=== PATIENT | male | born 1975 | race Caucasian/White ===

== ENCOUNTER 2016-12-15 14:08 | Emergency (ER) | payer OTHER ==
[2016-12-15 14:16] VITALS: RESP 18
--- NOTE | 2016-12-15 14:57 | EDPHY ---
H & P Stated Complaint: blood in stool/abd discomfort/nausea/bloating - Personal History Current Tetanus/Diphtheria Vaccine: No - Medical/Surgical History Hx Asthma: No Hx Chronic Respiratory Disease: No Hx Diabetes: No Hx Cardiac Disease: No Hx Renal Disease: No Hx Cirrhosis: No Hx Alcoholism: No Hx HIV/AIDS: No Hx Splenectomy or Spleen Trauma: No Other PMH: seizure disorder - Social History Smoking Status: Never smoked Time Seen by Provider: 12/15/16 14:39 HPI/ROS: CHIEF COMPLAINT: Bloody appearing stool HISTORY OF PRESENT ILLNESS: 41-year-old male with no anticoagulant use history , history of seizure disorder, complaining of constipation, was bearing down hard this morning and noticed bloody appearance to his stool. On the next bowel movement this had resolved however on the subsequent 3rd bowel movement he noticed continued bloody appearance with some pain on defecation. No abdominal pain. No nausea or vomiting. No dizziness. No syncope. No near syncope. No chest pain. No rectal foreign body insertion. No chronic NSAID use PRIMARY CARE PROVIDER:Dr. Walter Estrada REVIEW OF SYSTEMS: A ten point review of systems was performed and is negative with the exception of the items mentioned in the HPI PAST MEDICAL & SURGICAL HISTORY: Seizure disorder SOCIAL HISTORY: PHYSICAL EXAM (Prior to examination, patient consented to physical exam, hands were washed and my usual and customary physical exam procedures followed) 1) GENERAL: Well-developed, well-nourished, alert and oriented. Appears to be in no acute distress. 2) HEAD: Normocephalic, atraumatic 3) HEENT: Pupils equal, round, reactive to light bilaterally. Sclera anicteric. 4) NECK: Full range of motion, no meningeal signs. 5) LUNGS: Clear auscultation bilaterally, no wheezes, no rhonchi, no retractions. 6) HEART: Regular rate and rhythm, no murmur, no heave, no gallop. 7) ABDOMEN: No guarding, no rebound, no focal tenderness, negative McBurney's, negative Kapadia's, negative Rovsing's, negative peritoneal sign, I am unable to elicit any abdominal pain 8) MUSCULOSKELETAL: Moving all extremities, no focal areas of tenderness, no obvious trauma. No peripheral edema or discoloration. 9) BACK: no visual or palpable abnormality. 10) SKIN: No rash, no petechiae. 11) rectal (with nurse Bradford Macedo at bedside): Normal rectal tone, reddish-brown stool on glove, nonmelenic appearing DIFFERENTIAL DIAGNOSIS: in no particular order including but not limited to factitious hematochezia, hemorrhoid, GI bleed (Pawan,Zay Ritika) Constitutional: Initial Vital Signs Temperature (C) 36.7 C 12/15/16 14:12 Heart Rate 84 12/15/16 14:12 Respiratory Rate 18 12/15/16 14:12 Blood Pressure 139/94 H 12/15/16 14:12 O2 Sat (%) 96 12/15/16 14:12 O2 Delivery Mode Room Air Allergies/Adverse Reactions: Sulfa (Sulfonamide Antibiotics) Allergy (Intermediate, Verified 12/15/16 14:10) Rash HAYFEVER Allergy (Uncoded 06/01/11 11:00) Other-Enter Comments Home Medications: Medication Instructions Recorded Amlodipine Besylate 12/15/16 Ativan 12/15/16 Keppra 12/15/16 Lisinopril 12/15/16 Onfi 12/15/16 Trileptal 12/15/16 Vinpat 12/15/16 Medical Decision Making Other Provider: PHYSICIAN DOCUMENTATION: The patient was evaluated and managed by the Physician Surfboard Maker and myself. I have reviewed the chart and agree with the findings and plan of care as documented. In addition, I examined the patient myself at multiple times. History confirmed as some red stool after constipation. Some abdominal discomfort but no real pain. History of seizure disorder. Currently on a low- salt diet for his hypertension. Physical findings as follows: Alert, normally conversant, not confused. No abdominal tenderness to palpation. His rectal bleeding sounds more likely to be due to hemorrhoid or anal fissure. However his sodium is trending down is 127 today. I tried to call his primary care practice but his physician Walter Estrada is out of town. I tried to get the pupil personnel services director physician to call back but they did not, and at 5:05 p.m. we called again but only got the answering service. Because I am really unable at this time to arrange prompt follow-up I consulted the hospitalist who saw the patient in ED for advice regarding disposition and treatment. Discussed with Dr. Barkley who will consult; [id number]. He assumed care, recommended discharge patient who is agreeable. Discussed with Dr. Smith for Natalie, who called back at 1809 will ensure recheck 1-2 days, outpatient GI or scope, discussed sodium. I am the secondary supervising physician. (Sage Doty) - Data Points Laboratory Results: Laboratory Results 12/15/16 15:24 12/15/16 15:24 Medications Given: Discontinued Medications Sodium Chloride (Ns) 1,000 mls @ 0 mls/hr IV ONCE ONE PRN Reason: Wide Open Stop: 12/15/16 17:00 Last Admin: 12/15/16 17:08 Dose: 1,000 mls Departure - Departure Disposition: Home, Routine, Self-Care Clinical Impression: Constipation, Hyponatremia Condition: Good Instructions: Constipation (ED), High Fiber Diet (ED) Additional Instructions: Return to the emergency department if you develop dizziness, feeling they you will pass out, abdominal pain or any other symptoms that concern you. Diet intake changes as discussed with Dr. Barkley. Referrals: Walter Estrada MD [Primary Care Provider] - 1-2 days without fail (Please call Dr. Rojo office tomorrow to get a repeat sodium blood test done in the next 48 hours.) Morgan Yang MD [place] [place] - 5-7 days, call for appt. ( Outpatient gastroenterology referral as discussed with you by Dr. Barkley)
[2016-12-15 15:34] LABS: % IMMATURE GRANULYOCYTES 0.6 % (0.0-1.1); ABSOLUTE IMMATURE GRANULOCYTES 0.07 10^3/uL (0.00-0.10); ADD DIFF? NO; ADD MORPH? NO; ADD SCAN? NO; ATYPICAL LYMPHOCYTE FLAG 0 (0-99); FRAGMENT RBC FLAG 0 (0-99); HEMATOCRIT 39.6 % (40.0-51.0); HEMOGLOBIN 14.6 g/dL (13.7-17.5); LEFT SHIFT FLG 10 (0-99); LIPEMIA HEMOLYSIS FLAG 90 (0-99); MEAN CELL HEMOGLOBIN 31.5 pg (27.9-34.1); MEAN CELL HEMOGLOBIN CONCENTR. 36.9 g/dL (32.4-36.7); MEAN CELL VOLUME 85.5 fL (81.5-99.8); MEAN PLATELET VOLUME 8.4 fL (8.7-11.7); PLATELET CLUMPS FLAG 10 (0-99); PLATELET COUNT 279 10^3/uL (150-400); RED BLOOD CELL COUNT 4.63 10^6/uL (4.40-6.38); RED CELL DISTRIBUTION WIDTH 11.4 % (11.5-15.2)
[2016-12-15 16:04] LABS: ALBUMIN 5.1 g/dL (3.5-5.0); ALKALINE PHOSPHATASE 100 IU/L (38-126); ANION GAP 12 mEq/L (8-16); ASPARTATE AMINOTRANSFERASE 30 IU/L (17-59); BILIRUBIN,TOTAL 0.7 mg/dL (0.1-1.4); BILIRUBIN-UNCONJUGATED 0.3 mg/dL (0.0-1.1); CALCIUM 9.3 mg/dL (8.5-10.4); CARBON DIOXIDE 24 mEq/l (22-31); CHLORIDE 91 mEq/L (97-110); CREATININE 0.8 mg/dL (0.7-1.3); GLOMERULAR FILTRATION RATE > 60; GLUCOSE 89 mg/dL (70-100); POTASSIUM 4.4 mEq/L (3.5-5.2); SODIUM 127 mEq/L (134-144); TOTAL PROTEIN 7.8 g/dL (6.3-8.2)
[2016-12-15 16:05] LABS: ALANINE AMINOTRANSFERASE 57 IU/L (21-72); BILIRUBIN-CONJUGATED 0.4 mg/dL (0.0-0.5)
[2016-12-15] MEDS ORDERED: NS 1,000 ML IV ONE (16:59)
--- NOTE | 2016-12-15 18:20 | GCON ---
[f rep st] CONSULTATION HOSPITALIST CONSULTATION REFERRING PHYSICIAN: Sage Doty MD REASON FOR CONSULTATION: Hyponatremia and consideration for hospitalization. 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 The patient states he has been having proble ms with constipation. Dr. Doty thought the bloody stools were most likely the result of a fissure. Incidentally, the patient was found to be hyponatremic with a serum sodium of 127. I reviewed his m edical records and it appears in 2012 and 2016 his sodium was 132 and 133. The patient endorses dri nking upwards of 3-4 L of water per day to avoid kidney stones. He is also on a low-salt diet in an attempt to control his blood pressure. PAST MEDICAL HISTORY: 1. Astrocytoma, status post resection with resulting seizure disorder. 2. Kidney stones. 3. Hypertension. PAST SURGICAL HISTORY: 1. Vagus nerve stimulator for seizure disorder. 2. Ureteroscopy and stone removal. 3. Craniotomy. MEDICATIONS: Reviewed. Refer to [employer] for details. ALLERGIES: Sulfa antibiotics. SOCIAL HISTORY: He denies any alcohol, tobacco, or illicit drug use. FAMILY HISTORY: Reviewed and noncontributory. REVIEW OF SYSTEMS: Comprehensive 10-point review of systems was done and is negative except for as mentioned in the HPI. PHYSICAL EXAM: VITAL SIGNS: Blood pressure 139/94, pulse of 84, respiratory rate 18, O2 sat 96% on room air, temperature afebrile. GENERAL: No acute distress. HEENT: Head: Normocephalic, atraum atic. Eyes: PERRLA. Sclerae anicteric. Mouth: Moist mucous membranes. NECK: Supple. No lymph adenopathy. CARDIOVASCULAR: S1, S2. No murmurs, rubs, clicks, or gallops. No JVD. No lower extr emity edema. PULMONARY: Lungs are clear. No wheezes, rales, or rhonchi. ABDOMEN: Soft, nontende r, nondistended. No guarding or rebound tenderness. Normoactive bowel sounds. EXTREMITIES: No cl ubbing or cyanosis. NEURO: Cranial nerves 2-12 grossly intact. No focal motor or sensory deficits . LABORATORY DATA: WBC is 11.32, hemoglobin 14.6, hematocrit 39.6, platelets 279. Sodium 127, potass ium 4.4, chloride 91, BUN 10, creatinine 0.8, glucose 89, albumin 5.1. Stool occult blood was posit jesse. ASSESSMENT/PLAN: This is a 41-year-old male with a history of seizure disorder, on seizure medicati ons, presenting with: 1. Blood-colored stools, most likely due to fissure. 2. Plan: I discussed this with the patient and Dr. Doty, and we will plan for an outpatient follow up with a supervisor opening and picking. The patient was instructed to seek medical attention if the bleeding persists or worsens. 3. Hyponatremia. It is likely acute on chronic and multifactorial in the setting of medications th at can cause hyponatremia as well as a low-salt diet in the setting of copious free water ingestion. Plan: I recommended that the patient decrease his free water intake to less than 2 L per day from the 4 L that he is currently consuming. He may also liberalize his salt intake to less than 3 g of sodium per day. I provided the patient with a laboratory slip to have his sodium checked later on this week to ensure his sodium is trending up. At this time, the patient is agreeable to discharge from the emergency department, which I think is reasonable with the outpatient followup as discussed above. Copy requested to: Primary Care Provider /[id number]/[id number]
[2016-12-15 18:22] VITALS: BP 115/76; PULSE 71; TEMP 97.7; O2SAT 95
== END 2016-12-15 18:22 | disposition home or self-care (01) ==
LOC: UNDOADMOB 17:36
DX: K59.00 Constipation, unspecified (principal); E87.1 Hypo-osmolality and hyponatremia

== ENCOUNTER → 2017-05-11 | Outpatient (CLI) | payer OTHER | LOC: BMCIMAGING 10:26 | PROVIDERS: ATTEND Family Medicine | DX: R33.9 Retention of urine, unspecified (principal) ==